=== PATIENT | female | born 2005 | race African-American/Black ===

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

== ENCOUNTER 2024-04-08 18:23 | Emergency (ER) | payer OTHER ==
[~2024-04-08] VITALS: Ht 175.3 cm; Wt 77.3 kg
[2024-04-08 18:26] VITALS: BP 120/66; PULSE 98; RESP 18; TEMP 98; O2SAT 99
[2024-04-08] MEDS ORDERED: IBUP-1554 PO (21:44)
[2024-04-08] MEDS ORDERED: ACET-66 PO (21:44)
[2024-04-08] MEDS: ACETAMINOPHEN 500 MG TABLET PO ONE (21:55)
== END 2024-04-08 22:09 | disposition home or self-care (01) ==
LOC: EMS 18:23
DX: S90.32XA Contusion of left foot, initial encounter (principal); X58.XXXA Exposure to other specified factors, initial encounter; Y93.89 Activity, other specified; Y92.89 Other specified places as the place of occurrence of the external cause; Y99.8 Other external cause status
CPT/HCPCS: 99283

== ENCOUNTER 2024-06-26 15:08 | Emergency (ER) | payer OTHER ==
[~2024-06-26] VITALS: Ht 170.2 cm; Wt 85.0 kg
[~2024-06-26 15:08] MED LIST changes: +ACET-66 PO; -CLON-592 PO; +IBUP-1554 PO; -SILV20CR11 TP
[2024-06-26 15:49] VITALS: TEMP 98.5
[2024-06-26 16:36] LABS: APPEARANCE,URINE CLEAR (CLEAR); BILIRUBIN,URINE NEGATIVE (NEGATIVE); COLOR,URINE COLORLESS (YELLOW); GLUCOSE, URINE (UA) NEGATIVE (NEGATIVE); KETONES,URINE NEGATIVE (NEGATIVE); LEUKOCYTE ESTERASE ,URINE NEGATIVE (NEGATIVE); NITRATE,URINE NEGATIVE (NEGATIVE); OCCULT BLOOD,URINE NEGATIVE (NEGATIVE); PROTEIN,URINE NEGATIVE (NEGATIVE); SPECIFIC GRAVITIY, URINE 1.007 (1.003-1.030); UROBILINOGEN,URINE <=1.0 mg/dL (<=1.0)
[2024-06-26 16:57] LABS: INFLUENZA TYPE A NEGATIVE FOR TYPE A (NEGATIVE); INFLUENZA TYPE B NEGATIVE FOR TYPE B (NEGATIVE)
[2024-06-26 17:10] LABS: BASOPHILS % (AUTO) 0.3 % (0.0-2.0); EOSINOPHILS % (AUTO) 1.5 % (1.0-6.0); HEMATOCRIT 40.4 % (36-46); HEMOGLOBIN 13.5 g/dL (12.0-16.0); LYMPHOCYTES # (AUTO) 2.3 K/uL (1.0-4.8); LYMPHOCYTES % (AUTO) 30.7 % (22.0-44.0); MEAN CORPUSCULAR HEMOGLOBIN 31.8 pg (26.0-34.0); MEAN CORPUSCULAR HGB CONC 33.4 G/dL (31.0-37.0); MEAN CORPUSCULAR VOLUME 95 fL (80-100); MONOCYTES # (AUTO) 0.6 K/uL (0.1-1.0); MONOCYTES % (AUTO) 8.1 % (2.0-9.0); NEUTROPHILS # (AUTO) 4.4 K/uL (1.8-7.7); NEUTROPHILS % (AUTO) 59.4 % (40.0-70.0); PLATELET COUNT (AUTO) 196 K/uL (150-450); RED BLOOD CELL COUNT(AUTO) 4.25 MIL/uL (4.00-5.20); RED CELL DISTRIBUTION WIDTH 12.4 % (11.5-14.5); WHITE BLOOD COUNT (AUTO) 7.5 K/uL (4.5-11.0)
[2024-06-26 17:18] LABS: ANION GAP 7 mmol/L (8-16); CALCIUM, TOTAL 8.6 mg/dL (8.8-10.5); CARBON DIOXIDE 29 mmol/L (22-29); CHLORIDE 103 mmol/L (98-107); CREATININE 0.85 mg/dL (0.60-1.30); GLOMERULAR FILTR. RATE CALC > 60 mL/min (>60); GLUCOSE,RANDOM 79 mg/dL (70-110); POTASSIUM 3.8 mmol/L (3.5-5.1); SODIUM SERUM 139 mmol/L (136-145); UREA NITROGEN, BLOOD 13 mg/dL (7-18)
[2024-06-26 17:27] LABS: TROPONIN I-HIGH SENSITIVITY 4 ng/L (<51)
[2024-06-26] MEDS: SODIUM CHLORIDE 0.9% 2,000 ML IV ONE (17:51)
[2024-06-26 18:53] VITALS: BP 121/71; PULSE 81; RESP 20; O2SAT 100
== END 2024-06-26 19:11 | disposition home or self-care (01) ==
LOC: EMS 15:08
DX: R42 Dizziness and giddiness (principal); F95.2 Tourette's disorder
CPT/HCPCS: 99284; 96360; 80048; 81003; 84484; 84703; 85025; 87804; 36415; 93005; J7030

== ENCOUNTER 2025-06-28 15:20 | Emergency (ER) | payer OTHER ==
[~2025-06-28] VITALS: Ht 172.7 cm; Wt 74.0 kg
[2025-06-28 15:27] VITALS: BP 105/49; PULSE 92; RESP 16; TEMP 97.5; O2SAT 100
[2025-06-28] MEDS ORDERED: IBUP-1492 PO (15:48)
[2025-06-28] MEDS ORDERED: LIDO-57 TP (15:48)
[2025-06-28] MEDS: LIDOCAINE 5% TRANSDERMAL PATCH TD ONE (15:59)
[2025-06-28] MEDS: KETOROLAC TROMETHAMINE 30 MG/ML VIAL IM ONE (15:59)
== END 2025-06-28 16:24 | disposition home or self-care (01) ==
LOC: EMS 15:59
DX: S39.012A Strain of muscle, fascia and tendon of lower back, initial encounter (principal); Z79.899 Other long term (current) drug therapy; W19.XXXA Unspecified fall, initial encounter; Y93.89 Activity, other specified; Y92.89 Other specified places as the place of occurrence of the external cause; Y99.8 Other external cause status
CPT/HCPCS: 99283; 96372; J1885